=== PATIENT | female | born 2005 | race Caucasian/White ===

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

== ENCOUNTER 2024-03-11 20:24 | Emergency (ER) | payer OTHER ==
[~2024-03-11] VITALS: Ht 157.4 cm; Wt 63.5 kg
[2024-03-11] MEDS ORDERED: Acetaminophen/Hydrocodone 5 MG/325 MG TABLET PO ONE (20:35)
[2024-03-11] MEDS ORDERED: Ondansetron Hydrochloride 4 MG TAB SL ONE (20:35)
[2024-03-11] MEDS ORDERED: PENICILLIN V POTASSIUM 500 MG TAB PO ONE (20:35)
[2024-03-11] MEDS ORDERED: PENICILLIN VK500 MG PO (20:41)
== END 2024-03-11 21:01 | disposition home or self-care (01) ==
LOC: ED 20:24
DX: K02.9 Dental caries, unspecified (principal)